=== PATIENT | female | born 1960 | race Caucasian/White ===

== ENCOUNTER 2019-12-11 15:05 | Inpatient (IN) | payer MEDICARE, OTHER, SELFPAY ==
[2019-12-11 15:41] VITALS: BP 176/102; PULSE 80; RESP 18; TEMP 36.8; O2SAT 95; BMI 34.3
[2019-12-11 18:41] LABS: Add Urine Microscopic? NO
[2019-12-11 19:14] LABS: Bilirubin Urine Neg (NEGATIVE); Blood Urine Neg (Negative); Glucose Urine UA Norm (Normal); Ketones Urine Negative (Negative); Nitrate Urine Negative (Negative); Protein Urine Neg (Negative); Specific Gravity, Urine 1.005 (1.005-1.030); Urine Appearance Clear (CLEAR); Urine Color Yellow (Yellow); pH Urine 6 (5-7)
[2019-12-11 19:15] LABS: Leukocyte Esterase Urine Negative (Negative); Urobilinogen Urine Norm (Negative)
--- NOTE | 2019-12-11 20:40 | ED_ITS ---
Entered by Francheska Dozier, acting as scribe for Kvng Mayorga MD Dec 11, 2019 15:05 HPI - General Adult General: Chief complaint: General Medical Stated complaint: Multiple complaints Time Seen by Provider: 12/11/19 20:36 Source: patient Mode of arrival: ambulatory Limitations: no limitations History of Present Illness: HPI narrative: 59 y/o female presents to the ED with complaint of right ear pain and SOB since this AM. Pt states she just moved here from [place] and she does not have an established physician. Pt states she has an extensive medical hx. She states she woke up this morning with a burning sensation in every muscle and bone in her body. She also reports having a pain in her right side that radiates into her back. complaint: Multiple complaints Onset (ago): day(s) Severity: mild and moderate Quality: burning and aching Pain Consistency: constant Relieving factors: none Associated symptoms: Reports dyspnea and short of breath; Deny headache(s), nausea, rash or vomiting Review of Systems Const: Denies: fever or chills Eyes: Denies: change in vision ENMT: Reports: ear pain (right); Denies: throat pain or mouth pain Card: Denies: lightheadedness Resp: Reports: shortness of breath GI: Reports: abdominal pain; Denies: nausea, vomiting or diarrhea : Denies: difficulty urinating Musc: Reports: back pain and joint pain Skin/Breast: Denies: rash Neuro: Denies: headache or behavioral changes Psych: Denies: depression Endo: Denies: excessive urination Kevin/Lymph: Denies: easy bruising All/Imm: Denies: hives PFSH ED PFSH: Statuses (acute, chronic, etc) shown below reflect problem list status as previously entered and may not be historically accurate Social History Smoking and tobacco status: current every day smoker Physical Exam Const: COMMON NORMALS: no apparent distress, oriented x3 and healthy appearing HENMT: COMMON NORMALS: normocephalic and external nose normal HEAD & SCALP: normocephalic NOSE: external nose normal Eye: COMMON NORMALS: PERRL PUPIL: Yes PERRL Neck/C-Spine: COMMON NORMALS: full ROM and no lymphadenopathy Chest: COMMONS NORMALS: inspection of chest normal Resp: COMMON NORMALS: normal respiratory effort, no use of accessory muscles and clear to auscultation bilaterally AUSCULTATION: clear to auscultation bilaterally Cardio: COMMON NORMALS: regular rate and regular rhythm RATE: regular rate RHYTHM: regular rhythm GI: COMMON NORMALS: normal to inspection, nondistended, normoactive bowel sounds, soft to palpation, non-tender and no masses PALPATION: Yes soft Back/Pelvis: THORACIC SPINE/UPPER BACK: Yes normal to inspection Extremity: COMMON NORMALS: normal to inspection, full ROM and normal capillary refill Neuro: COMMON NORMALS: oriented x3 Psych: COMMON NORMALS: mental status grossly normal and cooperative Skin: COMMON NORMALS: no rashes or lesions noted GENERAL SKIN EXAM: no rashes or lesions noted Course Vital Signs: Vital signs: Vital Signs Temperature 98.2 F 12/11/19 15:41 Pulse Rate 80 12/11/19 15:41 Respiratory Rate 18 12/11/19 15:41 Blood Pressure 176/102 12/11/19 15:41 Pulse Oximetry 95 12/11/19 15:41 MDM - General Adult MDM Narrative: Medical decision making narrative: Patient presents here with patient presents originally with abdominal pain along with slight cough. X-ray shows no pneumonia CT abdomen is normal. She has ear pain as well with no signs of ear infection. Upon discharge patient states she went to kill her self and had plan of cutting her throat. I spoke to psychiatrist and will admit to the psychiatric unit under a 96-hour hold. Patient is medically cleared and stable while here. Lab Data: Labs: Lab Results 12/11/19 12/11/19 12/11/19 Range/Units 17:10 20:50 20:50 WBC 8.0 (4.0-10.0) 10^3/ uL RBC 4.74 (4.1-5.3) 10^6/u L Hgb 14.6 (11.5-15.3) g/dL Hct 44.5 (37.0-47.0) % MCV 93.9 (81-99) fL MCH 30.8 (28.0-34.0) pg MCHC 32.8 (30.0-36.0) g/dL RDW 13.5 (12.1-15.1) % Plt Count 268 (130-400) 10^3/c mm MPV 9.2 (7.4-10.4) fL Neut % (Auto) 68.6 % Lymph % (Auto) 19.8 % [place] % (Auto) 7.8 % Eos % (Auto) 2.8 % Baso % (Auto) 0.6 % Neut # (Auto) 5.5 (1.8-7.7) 10^3/u L Lymph # (Auto) 1.6 (0.8-4.8) 10^3/u L [place] # (Auto) 0.6 (0.2-0.9) 10^3/u L Eos # (Auto) 0.2 (0.0-0.8) 10^3/u L Baso # (Auto) 0.1 (0.0-0.1) 10^3/u L Nucleated RBC % (a uto) 0 % Nucleated RBCs # 0.0 /100WBC Sodium 142 (136-145) mmol/L Potassium 4.0 (3.5-5.1) mmol/L Chloride 103 (98-107) mmol/L Carbon Dioxide 24 (22-29) mmol/L Anion Gap 19.0 (5-19) BUN 18 (8-23) mg/dL Creatinine 0.7 (0.5-0.9) mg/dL GFR Calculation 85.4 L (90-130) mL/min Glucose 122 H (74-106) mg/dL Calcium 9.8 (8.8-10.2) mg/Dl Total Bilirubin 0.2 (0.15-1.2) mg/dL AST 17 (0-32) U/L ALT 20 (0-33) U/L Alkaline Phosphata se 93 (35-105) IU/L Total Protein 7.3 (6.6-8.7) g/dL Albumin 4.5 (3.5-5.2) g/dL Globulin 2.8 (1.3-4.6) g/dL Lipase 25 (13-60) U/L Urine Color Yellow (Yellow) Urine Appearance Clear (CLEAR) Urine pH 6 (5-7) Ur Specific Gravit y 1.005 (1.005-1.030) Urine Protein Neg (Negative) Urine Glucose (UA) Norm (Normal) Urine Ketones Negative (Negative) Urine Occult Blood Neg (Negative) Urine Nitrate Negative (Negative) Urine Bilirubin Neg (NEGATIVE) Urine Urobilinogen Norm (Negative) mg/dL Ur Leukocyte Erma ase Negative (Negative) Salicylates (3-10) mg/dL Acetaminophen (10-30) ug/mL Ethyl Alcohol (0-10) mg/dL 12/11/19 Range/Units 20:50 WBC (4.0-10.0) 10^3/ uL RBC (4.1-5.3) 10^6/u L Hgb (11.5-15.3) g/dL Hct (37.0-47.0) % MCV (81-99) fL MCH (28.0-34.0) pg MCHC (30.0-36.0) g/dL RDW (12.1-15.1) % Plt Count (130-400) 10^3/c mm MPV (7.4-10.4) fL Neut % (Auto) % Lymph % (Auto) % [place] % (Auto) % Eos % (Auto) % Baso % (Auto) % Neut # (Auto) (1.8-7.7) 10^3/u L Lymph # (Auto) (0.8-4.8) 10^3/u L [place] # (Auto) (0.2-0.9) 10^3/u L Eos # (Auto) (0.0-0.8) 10^3/u L Baso # (Auto) (0.0-0.1) 10^3/u L Nucleated RBC % (a uto) % Nucleated RBCs # /100WBC Sodium (136-145) mmol/L Potassium (3.5-5.1) mmol/L Chloride (98-107) mmol/L Carbon Dioxide (22-29) mmol/L Anion Gap (5-19) BUN (8-23) mg/dL Creatinine (0.5-0.9) mg/dL GFR Calculation (90-130) mL/min Glucose (74-106) mg/dL Calcium (8.8-10.2) mg/Dl Total Bilirubin (0.15-1.2) mg/dL AST (0-32) U/L ALT (0-33) U/L Alkaline Phosphata se (35-105) IU/L Total Protein (6.6-8.7) g/dL Albumin (3.5-5.2) g/dL Globulin (1.3-4.6) g/dL Lipase (13-60) U/L Urine Color (Yellow) Urine Appearance (CLEAR) Urine pH (5-7) Ur Specific Gravit y (1.005-1.030) Urine Protein (Negative) Urine Glucose (UA) (Normal) Urine Ketones (Negative) Urine Occult Blood (Negative) Urine Nitrate (Negative) Urine Bilirubin (NEGATIVE) Urine Urobilinogen (Negative) mg/dL Ur Leukocyte Erma ase (Negative) Salicylates < 0.3 L (3-10) mg/dL Acetaminophen < 5.0 L (10-30) ug/mL Ethyl Alcohol < 10 (0-10) mg/dL Imaging Data^: CXR: Attestation: I personally reviewed and interpreted this imaging study as follows : My impression: no acute abnormality CT Abd/Pel: Radiologist's impression: Ordering Provider/Ordering MD: Kvng Mayorga MD Date of Service: 12/11/19 Procedure(s): CT abdomen pelvis con [id number] Accession Number(s): [id number] Report Number: [id number] PROCEDURE INFORMATION: Exam: CT Abdomen And Pelvis Without Contrast Exam date and time: 12/11/2019 9:04 PM Age: 59 years old Clinical indication: Abdominal pain; Acute; Prior surgery; Surgery date: 6+ months; Surgery type: Hernia; Additional info: Abd pain TECHNIQUE: Imaging protocol: Computed tomography of the abdomen and pelvis without contrast. Total DLP: 1282.41 mGy-cm Radiation optimization: All CT scans at this facility use at least one of these dose optimization techniques: automated exposure control; mA and/or kV adjustment per patient size (includes targeted exams where dose is matched to clinical indication); or iterative reconstruction. COMPARISON: No relevant prior studies available. FINDINGS: Lungs: There is subpleural atelectasis of the dependent portions of the lungs. Mediastinum: A small hiatal hernia is present. Liver: Unremarkable.No mass. Gallbladder and bile ducts: Normal. No calcified stones. No ductal dilation. Pancreas: Normal. No ductal dilation. Spleen: Normal. No splenomegaly. Adrenals: There are bilateral adrenal nodules. The left adrenal nodule is heterogeneous and measures 3.8 by 3.7 cm in size. The right adrenal nodule measures 3.6 by 2.2 cm in size. The right adrenal nodule has characteristics of an adenoma. Kidneys and ureters: There is no evidence of hydronephrosis. There is no evidence of renal calcifications. A there is a 4 cm fluid density cyst left kidney. Stomach and bowel: Moderate diverticulosis is present in the distal colon. There is mild diverticulitis of the sigmoid colon image 62. There is induration of the fat but no abscess or free air. No additional bowel thickening. No ileus or obstruction. Appendix: No evidence of appendicitis. Intraperitoneal space: Unremarkable. No free air. No significant fluid collection. Vasculature: Unremarkable.No abdominal aortic aneurysm. Lymph nodes: Probable partially calcified lymph node is noted in the left pelvis. Bladder: Click appendixThere is nonspecific bladder wall thickening. This may be related to incomplete distention. Reproductive: There has been a hysterectomy. Bones/joints: There is dextroscoliosis with severe degenerative changes in the lower lumbar spine. No acute fracture or bony destruction. Soft tissues: Unremarkable. CT/CT abdomen pelvis wo con [id number] IMPRESSION: 1. Bilateral adrenal nodules. The right adrenal nodule has characteristics of an adenoma. The left adrenal nodule is indeterminate. 2. Mild diverticulitis of the sigmoid colon. No abscess or free air. Discharge Plan Discharge Patient Disposition: Home, Self-Care Clinical Impression: Suicidal ideation Abdominal pain Qualifiers: Abdominal location: generalized Qualified Code(s): R10.84 - Generalized abdominal pain Condition: Stable Discharge Orders: Discharge Order (Routine); Ordered 12/11/19 Ordered By: Kvng Mayorga Discharge Diet: Advance as tolerated Discharge Activity: Resume usual activity Coding Level of Care Code ED Patient Financial Services Specialist for Chg Fwd Exam Problem Focused The documentation recorded by the Jacoby abreu Ashley, accurately reflects the service I personally performed and the decisions made by Mukesh lee Korby, MD Dec 11, 2019 15:05
--- NOTE | 2019-12-11 20:44 | XR_ITS ---
WS: [id number] PORTABLE CHEST HISTORY: cough COMPARISON: None available. Linear scar atelectasis in the RIGHT lower lung field. Otherwise lungs are clear. No pleural effusion or pneumothorax. Cardiac size: Mildly enlarged cardiac silhouette. Mediastinum/Aorta: Mild atherosclerosis aorta. AC joint arthropathy. XR/XR chest 1V portable [id number] IMPRESSION: Linear atelectasis in the RIGHT lower lung field. No pneumonia. Mild cardiomegaly.
--- NOTE | 2019-12-11 20:44 | CTR_ITS ---
PROCEDURE INFORMATION: Exam: CT Abdomen And Pelvis Without Contrast Exam date and time: 12/11/2019 9:04 PM Age: 59 years old Clinical indication: Abdominal pain; Acute; Prior surgery; Surgery date: 6+ months; Surgery type: Hernia; Additional info: Abd pain TECHNIQUE: Imaging protocol: Computed tomography of the abdomen and pelvis without contrast. Total DLP: 1282.41 mGy-cm Radiation optimization: All CT scans at this facility use at least one of these dose optimization techniques: automated exposure control; mA and/or kV adjustment per patient size (includes targeted exams where dose is matched to clinical indication); or iterative reconstruction. COMPARISON: No relevant prior studies available. FINDINGS: Lungs: There is subpleural atelectasis of the dependent portions of the lungs. Mediastinum: A small hiatal hernia is present. Liver: Unremarkable.No mass. Gallbladder and bile ducts: Normal. No calcified stones. No ductal dilation. Pancreas: Normal. No ductal dilation. Spleen: Normal. No splenomegaly. Adrenals: There are bilateral adrenal nodules. The left adrenal nodule is heterogeneous and measures 3.8 by 3.7 cm in size. The right adrenal nodule measures 3.6 by 2.2 cm in size. The right adrenal nodule has characteristics of an adenoma. Kidneys and ureters: There is no evidence of hydronephrosis. There is no evidence of renal calcifications. A there is a 4 cm fluid density cyst left kidney. Stomach and bowel: Moderate diverticulosis is present in the distal colon. There is mild diverticulitis of the sigmoid colon image 62. There is induration of the fat but no abscess or free air. No additional bowel thickening. No ileus or obstruction. Appendix: No evidence of appendicitis. Intraperitoneal space: Unremarkable. No free air. No significant fluid collection. Vasculature: Unremarkable.No abdominal aortic aneurysm. Lymph nodes: Probable partially calcified lymph node is noted in the left pelvis. Bladder: Click appendixThere is nonspecific bladder wall thickening. This may be related to incomplete distention. Reproductive: There has been a hysterectomy. Bones/joints: There is dextroscoliosis with severe degenerative changes in the lower lumbar spine. No acute fracture or bony destruction. Soft tissues: Unremarkable. CT/CT abdomen pelvis wo con [id number] IMPRESSION: 1. Bilateral adrenal nodules. The right adrenal nodule has characteristics of an adenoma. The left adrenal nodule is indeterminate. 2. Mild diverticulitis of the sigmoid colon. No abscess or free air. Radiation Dose CTDIVOL = (mGy): DLP = 1282.41 (mGy-cm)
[2019-12-11 21:06] LABS: Basophils # 0.1 10^3/uL (0.0-0.1); Basophils % 0.6 %; Eosinophils # 0.2 10^3/uL (0.0-0.8); Eosinophils % 2.8 %; Hematocrit 44.5 % (37.0-47.0); Hemoglobin 14.6 g/dL (11.5-15.3); Lymphocytes # 1.6 10^3/uL (0.8-4.8); Lymphocytes % 19.8 %; Mean Corpuscular HGB Conc 32.8 g/dL (30.0-36.0); Mean Corpuscular Hemoglobin 30.8 pg (28.0-34.0); Mean Corpuscular Volume 93.9 fL (81-99); Mean Platelet Volume 9.2 fL (7.4-10.4); Monocytes # 0.6 10^3/uL (0.2-0.9); Monocytes % 7.8 %; Neutrophils # 5.5 10^3/uL (1.8-7.7); Neutrophils % 68.6 %; Nucleated Red Blood Cells % 0 %; Platelet Count 268 10^3/cmm (130-400); Red Blood Count 4.74 10^6/uL (4.1-5.3); Red Cell Distribution Width 13.5 % (12.1-15.1)
[2019-12-11 21:22] LABS: Alanine Aminotransferase 20 U/L (0-33); Albumin Level 4.5 g/dL (3.5-5.2); Alkaline Phosphatase 93 IU/L (35-105); Aspartate Amino Transferase 17 U/L (0-32); Blood Urea Nitrogen 18 mg/dL (8-23); Calcium 9.8 mg/Dl (8.8-10.2); Carbon Dioxide 24 mmol/L (22-29); Chloride 103 mmol/L (98-107); Globulin 2.8 g/dL (1.3-4.6); Glomerular Filtration Rate 85.4 mL/min (90-130); Glucose 122 mg/dL (74-106); Lipase 25 U/L (13-60); Sodium 142 mmol/L (136-145); Total Bilirubin 0.2 mg/dL (0.15-1.2); Total Protein 7.3 g/dL (6.6-8.7)
[2019-12-11 22:25] VITALS: BP 135/63; PULSE 78; RESP 16; TEMP 36.7; O2SAT 97
--- NOTE | 2019-12-11 22:28 | PC.NURSE ---
At patients bedside to discharge patient. Patient asking questions about her results. Informing the patient of her results. Patient states I am just going to go home and cut my throat. Physician notified of the patients statement.
[2019-12-11 23:44] LABS: Acetaminophen < 5.0 ug/mL (10-30); Alcohol Level < 10 mg/dL (0-10); Salicylate < 0.3 mg/dL (3-10)
[2019-12-12 00:44] VITALS: BP 142/75; PULSE 82; RESP 16; O2SAT 97
[2019-12-12 00:46] VITALS: BP 171/107; PULSE 95; RESP 19; TEMP 36.9; O2SAT 97
--- NOTE | 2019-12-12 02:30 | PC.NURSE ---
WHEN ARRIVED TO FLOOR FROM ER [id number], WAS VERY LOUD, RUDE, CUSSING, SAYS SHE IS GOING TO [facility] AND [facility]AFF FOR NOT DOING WHAT SHE WANTS. REFUSED TO SIGN ANY ADMIT PAPERS. WAS INSTRUCTED THAT SHE NEEDS TO COOPERATE AND NOT BE SO LOUD. THEN REFUSED SKIN ASSESSMENT, WAS LAYING ON TABLE IN DAY ROOM, WAS TOLD CAN NOT LAY ON TABLES. REFUSES TO GO TO BED , SAYS HE CAN NOT BREATHE. HAS BEEN TALKING NON STOP THE WHOLE TIME SHE GAS BEEN HERE.
[2019-12-12 06:00] VITALS: BP 203/115; PULSE 73; RESP 21; TEMP 36.5; O2SAT 98
--- NOTE | 2019-12-12 09:50 | P.HP_ITS ---
Providers/Chief Complaint Admitting Physician: Bryan Schultz MD Chief Complaint: Multiple complaints HPI NPU History of Present Illness Chief complaint: I came into the emergency room. I'm not from here. My doctors in [place] sucks. They said they had the best care here. History of present illness: Julianne Vogt This is 59-year-old woman who apparently came to the emergency room looking for some specialized medical care. She has a disability for chronic pain and is being treated hypertension. She felt that she could just walk in the emergency room and get care of this needed.At the same time, she is very nonspecific about what type of care that she was looking for. Has a multitude of somatic complaints. Many of the center around her pain though she has an active prescription for Tylenol with codeine in her possession. Patient states that at the time of discharging patient. Patient started to ask several questions about her results. Patient then stated I am just going to go home and cut my throat. The patient is adamant that she has never been admitted to a psychiatric hospital. She saw a psychiatrist briefly when she was going through a divorce many years ago. She is not treated regularly with all health medications is on none at this time. She states that she is not an imminent risk to self or others. She is frustrated but not depressed. She is looking forward to returning before in one month to complete her move to [place] though now she is having some second thoughts as it is not what she expected. ER note: HPI narrative: 59 y/o female presents to the ED with complaint of right ear pain and SOB since this AM. Pt states she just moved here from [place] and she does not have an established physician. Pt states she has an extensive medical hx. She states she woke up this morning with a burning sensation in every muscle and bone in her body. She also reports having a pain in her right side that radiates into her back. It should be noted that no urine drug screen was performed. She does demonstrate some mild flight of ideas which could be attributed to substance use. We are unable to assess that at this time. However does not change her mental health assessment. Mental health history:The patient is adamant that she has never been admitted to a psychiatric hospital. She saw a psychiatrist briefly when she was going through a divorce many years ago. Social history:She grew up in [place]. She has been living in [place] until earlier this month. She came to [place] to her daughter and was intending to move here permanently. Her daughter is a personal security specialist at the local gym. Legal history:There are no records of incarcerations or felonies in the public record Past medical history:She emergency room and nursing notes Mental Status Exam: The patient is an elderly woman appearing older than stated age. She is walking cane walks hunched over fashion. Eye contact is fleeting. Hygiene is appropriate.She is believed to be a reliable informant contrast of her ability. Appearance: hygiene is fair; no gross neurological deficits., gait is unremarkable; AIMS=0 Speech: Speech is of normal rate and rhythm and easily understood. She demonstrates mild flight of ideas. Thought processes: Thought processes are Idiosyncratic. Judgment is adequate for safety. Associations: intact Psychotic processes: There is no indication of guarding or paranoia. There is no attention to the internal stimuli. Auditory and visual hallucinations are denied. Judgment: Insight is fair. Problem solving skills are adequate for safety. Orientation: The patient is oriented to person, place time and situation. Memory: no deficits noted in immediate, intermediate, or remote spheres. Attention: The patient is alert and interpersonally engaged. Language: Verbalizations are coherent. Fund of knowledge: Fund of knowledge is adequate. Affect/Mood: Affect is Irritable with a Euthymic mood. She denied suicidal ideation Affective range appropriate. Psychosis: perception unimpaired except through cognitive distortion With some magical beliefs; reality testing Adequate for safety Diagnoses:Adjustment disorder with disturbance of mood Assessment: Julianne Vogt Is a 59-year-old woman who has a rather acutely or expectation of her environment and her reality it was not met when she came into the emergency room and she offhand comment that indicated potential dangerousness to self or others. At this time it does not appear that she is in imminent risk. Treatment plan: Due to the psychiatric conditions and treatment listed in the Assessment and Plan - the patient requires continued hospitalization. Will provide a safe and therapeutic environment for patient.. Will continue inpatient treatment to allow for medication adjustment and monitoring. Will continue q15 min safety checks. Will continue Home medications and monitor for medication side effects. Monitor patient's mood, sleep, appetite, and behavior closely. Encourage patient to participate in individual and group therapeutic sessions on the pina. Estimated length of stay 5 days The expected benefits and potential side effects of patient's psychiatric medications were discussed with the patient. The patient understands and consents to treatment.CRITERIA FOR DISCHARGE: stable on medications and no longer an imminent risk Meds NPU Home Medications Medication Instructions Recorded Confirmed Type acetaminophen-codeine 1 tab PO Q6H PRN 12/12/19 12/12/19 History amlodipine 10 mg PO DAILY 12/12/19 12/12/19 History atenolol 50 mg PO BID 12/12/19 12/12/19 History fluticasone propionate 1 spray INTRANASAL DIRECTED PRN 12/12/19 12/12/19 History Allergies Allergy/AdvReac Type Severity Reaction Status Date / Time celecoxib [From Celebrex] Allergy ALGY-Anaphy Verified 12/11/19 16:03 laxis clarithromycin Allergy ALGY-Anaphy Verified 12/11/19 16:03 laxis clotrimazole Allergy ALGY-Anaphy Verified 12/11/19 16:03 laxis duloxetine [From Cymbalta] Allergy Unknown Verified 12/11/19 16:03 erythromycin base Allergy ALGY-Anaphy Verified 12/11/19 16:03 laxis etanercept [From Enbrel] Allergy ALGY-Anaphy Verified 12/11/19 16:03 laxis gabapentin Allergy ALGY-Anaphy Verified 12/11/19 16:03 laxis ibuprofen Allergy ADR-Vomitin Verified 12/11/19 16:03 g iodine Allergy ALGY-Anaphy Verified 12/11/19 16:03 laxis methadone Allergy ALGY-Anaphy Verified 12/11/19 16:03 laxis methotrexate Allergy ALGY-Anaphy Verified 12/11/19 16:03 laxis morphine Allergy ALGY-Anaphy Verified 12/11/19 16:03 laxis naproxen [From Aleve] Allergy ALGY-Swell Verified 12/11/19 16:03 Lip/Tongue/Throat nisoldipine Allergy ALGY-Anaphy Verified 12/11/19 16:03 laxis prednisone Allergy ALGY-Anaphy Verified 12/11/19 16:03 laxis pregabalin [From Lyrica] Allergy ALGY-Anaphy Verified 12/11/19 16:03 laxis sertraline [From Zoloft] Allergy ALGY-Anaphy Verified 12/11/19 16:03 laxis simvastatin [From Zocor] Allergy ALGY-Anaphy Verified 12/11/19 16:03 laxis sodium sulfite Allergy ALGY-Anaphy Verified 12/11/19 16:03 laxis spironolactone Allergy ALGY-Anaphy Verified 12/11/19 16:03 laxis tizanidine [From Zanaflex] Allergy ALGY-Anaphy Verified 12/11/19 16:03 laxis PFSH NPU PFSH: Statuses (acute, chronic, etc) shown below reflect problem list status as previously entered and may not be historically accurate Social History Smoking and tobacco status: current every day smoker Vitals/I&O/Wt Last Vital Signs Temp 97.7 F 12/12/19 06:00 Pulse 73 12/12/19 06:00 Resp 21 H 12/12/19 06:00 BP 203/115 12/12/19 06:00 Pulse Ox 98 12/12/19 06:00 Weight last 48 hrs Weight 90.718 kg Data NPU Other Data: Other data: It should be noted that no urine drug screen was performed. She does demonstrate some mild flight of ideas which could be attributed to substance use. We are unable to assess that at this time. However does not change her mental health assessment. Involuntary Hold Information 96 Hour Hold: 96 Hour Involuntary Admission: No 96 Hour Hold Ending Date: 12/17/19 96 Hour Hold Ending Time: 22:50 Attestations NPU Medical Necessity Statement*: Patient will remain in the hospital 1-2 more nights until discharge conditions can be met. Coding Level of Care Code Acute Rail Loader for Katelyn Givens
[2019-12-12] MEDS: atenolol 50 mg Tablet 25 MG PO (12:10)
--- NOTE | 2019-12-12 12:15 | PC.SOCIAL ---
Nieves, daughter's significant other, said that patient is safe for discharge. She also lives with patient. She said that she will pick patient up later today.
[2019-12-12 12:23] LABS: Add Urine Microscopic? NO
[2019-12-12 12:31] LABS: Bilirubin Urine Neg (NEGATIVE); Blood Urine Neg (Negative); Glucose Urine UA Norm (Normal); Ketones Urine Negative (Negative); Leukocyte Esterase Urine Negative (Negative); Nitrate Urine Negative (Negative); Protein Urine Neg (Negative); Urine Appearance Clear (CLEAR); Urine Color Yellow (Yellow); Urobilinogen Urine Norm (Negative); pH Urine 7 (5-7)
[2019-12-12 12:56] LABS: Amphetamines Screen Urine Negative (Negative); Barbiturates Screen Urine Negative (Negative); Benzodiazepines Screen Urine Negative (Negative); Cocaine Screen Urine Negative (Negative); PCP Screen Urine Negative (Negative); THC Screen Urine Negative (Negative)
[2019-12-12 13:30] LABS: Opiate Screen Urine Positive (Negative)
[2019-12-12 13:54] VITALS: BP 171/97; PULSE 92; RESP 18; TEMP 37.3; O2SAT 97
--- NOTE | 2019-12-12 17:59 | PM.NDC ---
Reason for Visit Reason for Visit: Reason For Visit: Multiple complaints Hospital Course Discharge Summary [facility] complaint: I came into the emergency room. I'm not from here. My doctors in [place] sucks. They said they had the best care here. History of present illness: Julianne Vogt This is 59-year-old woman who apparently came to the emergency room looking for some specialized medical care. She has a disability for chronic pain and is being treated hypertension. She felt that she could just walk in the emergency room and get care of this needed.At the same time, she is very nonspecific about what type of care that she was looking for. Has a multitude of somatic complaints. Many of the center around her pain though she has an active prescription for Tylenol with codeine in her possession. Patient states that at the time of discharging patient. Patient started to ask several questions about her results. Patient then stated I am just going to go home and cut my throat. The patient is adamant that she has never been admitted to a psychiatric hospital. She saw a psychiatrist briefly when she was going through a divorce many years ago. She is not treated regularly with all health medications is on none at this time. She states that she is not an imminent risk to self or others. She is frustrated but not depressed. She is looking forward to returning before in one month to complete her move to [place] though now she is having some second thoughts as it is not what she expected. ER note: HPI narrative: 59 y/o female presents to the ED with complaint of right ear pain and SOB since this AM. Pt states she just moved here from [place] and she does not have an established physician. Pt states she has an extensive medical hx. She states she woke up this morning with a burning sensation in every muscle and bone in her body. She also reports having a pain in her right side that radiates into her back. It should be noted that no urine drug screen was performed. She does demonstrate some mild flight of ideas which could be attributed to substance use. We are unable to assess that at this time. However does not change her mental health assessment. Mental health history:The patient is adamant that she has never been admitted to a psychiatric hospital. She saw a psychiatrist briefly when she was going through a divorce many years ago. Social history:She grew up in [place]. She has been living in [place] until earlier this month. She came to [place] to her daughter and was intending to move here permanently. Her daughter is a personal banking representative at the local gym. Legal history:There are no records of incarcerations or felonies in the public record Past medical history:She emergency room and nursing notes Mental Status Exam: The patient is an elderly woman appearing older than stated age. She is walking cane walks hunched over fashion. Eye contact is fleeting. Hygiene is appropriate.She is believed to be a reliable informant contrast of her ability. Appearance: hygiene is fair; no gross neurological deficits., gait is unremarkable; AIMS=0 Speech: Speech is of normal rate and rhythm and easily understood. She demonstrates mild flight of ideas. Thought processes: Thought processes are Idiosyncratic. Judgment is adequate for safety. Associations: intact Psychotic processes: There is no indication of guarding or paranoia. There is no attention to the internal stimuli. Auditory and visual hallucinations are denied. Judgment: Insight is fair. Problem solving skills are adequate for safety. Orientation: The patient is oriented to person, place time and situation. Memory: no deficits noted in immediate, intermediate, or remote spheres. Attention: The patient is alert and interpersonally engaged. Language: Verbalizations are coherent. Fund of knowledge: Fund of knowledge is adequate. Affect/Mood: Affect is Irritable with a Euthymic mood. She denied suicidal ideation Affective range appropriate. Psychosis: perception unimpaired except through cognitive distortion With some magical beliefs; reality testing Adequate for safety Diagnoses:Adjustment disorder with disturbance of mood Assessment: Julianne Vogt Is a 59-year-old woman who has a rather acutely or expectation of her environment and her reality it was not met when she came into the emergency room and she offhand comment that indicated potential dangerousness to self or others. At this time it does not appear that she is in imminent risk. PLAN: the patient requested discharge. As she was not an apparent danger to self or others and no further benefit could be seen for her to remain in the hospital, she was discharged. Involuntary Hold Information 96 Hour Hold: 96 Hour Involuntary Admission: No 96 Hour Hold Ending Date: 12/17/19 96 Hour Hold Ending Time: 22:50 Discharge Data Data Completed and Pending: Completed Studies During Hospitalization Category Date Time Status CT abdomen pelvis wo con [id number] Urge nt Cat Scan 12/11/19 20:44 Completed XR chest 1V [place]att ble [id number] Urgent Exams 12/11/19 20:44 Completed Vitals: Last Vital Signs Temp 99.1 F 12/12/19 18:22 Pulse 92 12/12/19 13:54 Resp 18 12/12/19 18:22 BP 171/97 12/12/19 13:54 Pulse Ox 97 12/12/19 18:22 Discharge Plan Discharge Patient Disposition: Home, Self-Care Condition: Stable Prescriptions: No Action hydrochlorothiazide 25 mg tablet 25 mg PO QAM 30 Days Qty: 30 RF: 1 jexwnvekixpzjrk-tpdmrvyhp-OR [Bromfed DM] 2-30-10 mg/5 mL syrup 7.5 ml PO Q6H PRN (Reason: cold symptoms) Qty: 160 RF: 0 levalbuterol tartrate [Xopenex HFA] 45 mcg/actuation HFA aerosol inhaler 2 inh INHALATION Q6H Qty: 15 RF: 0 albuterol sulfate 90 mcg/actuation HFA aerosol inhaler 2 puff INHALATION Q6H PRN (Reason: shortness of breath or wheezing) Qty: 8.5 RF: 0 amlodipine 10 mg tablet 10 mg PO DAILY RF: 0 acetaminophen-codeine 300-60 mg tablet 1 tab PO Q6H PRN (Reason: Pain) RF: 0 fluticasone propionate 50 mcg/actuation spray,suspension 1 spray INTRANASAL DIRECTED PRN (Reason: Congestion) RF: 0 atenolol 50 mg tablet 50 mg PO BID RF: 0 Discharge Diet: Advance as tolerated Discharge Activity: Resume usual activity Patient Instructions: Otitis Media (ED), Abdominal Pain (ED) Activity Restrictions/Additional Instructions: If interested, you could follow-up at: [facility] [address] [place] [address] Discharge Date/Time: 12/12/19 18:22 Discharge Attestations NPU Time Spent in Discharge Care*: less than 30 min Coding Level of Care Code 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
[2019-12-12 18:22] VITALS: RESP 18; TEMP 37.3; O2SAT 97
== END 2019-12-12 18:22 | disposition home or self-care (01) | DRG 882 ==
LOC: ER 21:46 → NP 23:45
PROVIDERS: Emergency Medicine; Admitting Provider Psychiatry & Neurology Psychiatry; Emergency Provider Emergency Medicine; Visit Provider Psychiatry & Neurology Psychiatry
DX: F43.29 Adjustment disorder with other symptoms (principal)
CPT/HCPCS: 12345; 36415; 71045; 74176; 80053; 80307; 81003; 83690; 85025; 99282

== ENCOUNTER → 2019-12-17 10:32 | Outpatient (BNVA) | payer MEDICARE, OTHER, SELFPAY | PROVIDERS: Visit Provider Family Medicine | DX: I10 Essential (primary) hypertension (principal); J44.9 Chronic obstructive pulmonary disease, unspecified; N99.89 Other postprocedural complications and disorders of genitourinary system; B37.3 Candidiasis of vulva and vagina | CPT/HCPCS: 81003 ==

== ENCOUNTER → 2019-12-25 09:22 | Outpatient (BNVA) | payer MEDICARE, OTHER, SELFPAY | PROVIDERS: PCP Family Medicine; Visit Provider Emergency Medicine | DX: J11.1 Influenza due to unidentified influenza virus with other respiratory manifestations (principal) | CPT/HCPCS: 87804 ==